=== PATIENT | male | born 1975 | race Caucasian/White ===

== ENCOUNTER 2024-11-09 11:15 | Emergency (ER) | payer OTHER, SELFPAY ==
[2024-11-09 11:19] VITALS: BP 120/84; PULSE 66; TEMP 36.4; BMI 32.7
--- NOTE | 2024-11-09 11:43 | ED.GENADUL1 ---
HPI HPI - General Adult General Chief complaint: Back Pain/Injury Stated complaint: SHOULDER PAIN Time Seen by Provider: 11/09/24 11:20 Source: patient Mode of arrival: walk-in Limitations: no limitations History of Present Illness HPI narrative: pt developed pain in the upper left trapezius about 2 weeks ago - he cannot recall any injury or activity that might have caused the pain,. He works at [employer] but said that he does not do any heavy lifting or vigorous physical activity. He denied any other symptoms. No fever or chills. No URI symptoms or cough. No neck pain, chest pain or shortness of breath. No GI or symptoms. He tried a few 800mg motrin and even took a Percocet without any improvement. he is able to easily move both shoulders without any pain in the shoulder joints but it does worsen the left trapezius pain slightly when he moves the left shoulder. No numbness or tingling n the upper extemities. No skin rash Related Data Home Medications ?Medication ?Instructions ?Recorded ?Confirmed No Known Home Medications 11/09/24 11/09/24 Previous Rx's ?Medication ?Instructions ?Recorded methocarbamol 750 mg tablet 750 mg PO Q6H PRN pain #30 tabs 11/09/24 nabumetone 750 mg tablet 750 mg PO BID PRN pain #14 tabs 11/09/24 Allergies Allergy/AdvReac Type Severity Reaction Status Date / Time No Known Drug Allergies Allergy Verified 11/09/24 11:24 Opioid HPI Opioid Management Most Recent Opioid Data: Last Pain Scale 8 11/09/24 11:26 11/09/24 PFSH PFSH Social History Little interest or pleasure in doing things: not at all Feeling down, depressed, or hopeless: not at all Exam Narrative Exam Narrative: Nurses notes and vital signs reviewed and patient is not hypoxic. afebrile General: Well-appearing and in no apparent distress. Skin: Warm, dry, no pallor noted. No rash along the left trapezius. Head: Normocephalic, atraumatic. Neck: Supple, non-tender. Eye: Pupils are equal, round and EOMI. No scleral icterus. Ears, Nose, Mouth, and Throat: Oral mucosa is moist Cardiovascular: Regular Rate and Rhythm without murmur, gallop or rub. Respiratory: No accessory muscle use or respiratory distress. Lungs are clear to auscultation, no wheezing, rales or rhonchi Back: Focal soft tissue tenderness at the mid left trapezius. No midline thoracic or lumbar vertebral tenderness. No CVA tenderness or scapular tenderness. Musculoskeletal: normal ROM, no calf or popliteal tenderness, no lower extremity edema/swelling. Full range of motion of both shoulders with expected strength. Rotator cuff injury testing was negative. Movement and strength testing of the left shoulder does not exacerbate the patient's trapezius pain. Neurological: A&O x4. No cranial nerve dysfunction observed. No truncal ataxia. Moves all extremities. Sensation intact. Psychiatric: Cooperative and interactive. Normal mood and affect. Constitutional Vital Signs, click to edit/add: Last Vital Signs Temp 97.5 F L 11/09/24 11:19 Pulse 66 11/09/24 11:19 Resp 16 11/09/24 11:19 BP 120/84 11/09/24 11:19 Course Vital Signs Vital signs: Vital Signs Temperature 97.5 F L 11/09/24 11:19 Pulse Rate 66 11/09/24 11:19 Respiratory Rate 16 11/09/24 11:19 Blood Pressure 120/84 11/09/24 11:19 Temperature 97.5 F L 11/09/24 11:19 Pulse Rate 66 11/09/24 11:19 Respiratory Rate 16 11/09/24 11:19 Blood Pressure 120/84 11/09/24 11:19 Medical Decision Making [facility] Narrative Medical decision making narrative: History and exam are consistent with acute strain of the mid left trapezius. No risk factors for cardiac disease or pulmonary embolism. Patient received IM injections of Solu-Medrol and Toradol in the emergency department and was discharged home with prescriptions for Relafen and Robaxin. He was instructed to follow-up with his primary care provider in approximately 1 to 2 weeks for reevaluation if that did not cause the pain to resolve. Emergency department return for any concerning symptoms such as chest pain, shortness of breath, syncope. Discharge Plan Discharge Chief Complaint: Back Pain/Injury Clinical Impression: Strain of left trapezius muscle Patient Disposition: Home, Self-Care Time of Disposition Decision: 11:39 Prescriptions / Home Meds: New nabumetone 750 mg tablet 750 mg PO BID PRN (Reason: pain) Qty: 14 0RF methocarbamol 750 mg tablet 750 mg PO Q6H PRN (Reason: pain) Qty: 30 0RF No Action No Known Home Medications Print Language: Grenadian Instructions: Muscle Strain (ED) Referrals: Physician,Non-Staff, MD [Primary Care Provider] - 1 week
[2024-11-09] MEDS: KETOROLAC TROMETHAMINE 60 MG/2 ML VIAL IM (12:09)
[2024-11-09] MEDS: METHYLPREDNISOLONE SOD SUCC PF 125 MG/2 ML VIAL IM (12:09)
== END 2024-11-09 12:16 | disposition home or self-care (01) ==
PROVIDERS: Emergency Provider Emergency Medicine; PCP Nurse Practitioner
DX: S46.812A Strain of other muscles, fascia and tendons at shoulder and upper arm level, left arm, initial encounter (principal); X58.XXXA Exposure to other specified factors, initial encounter
CPT/HCPCS: 96372; 99284; J1885; J2919